=== PATIENT | female | born 1965 | race Caucasian/White ===

== ENCOUNTER 2021-01-22 18:43 | Emergency (ER) | payer OTHER ==
[~2021-01-22 18:43] MED LIST: COLACE100 MG PO; IBUPROFEN600 MG PO; KLONOPIN0.5 MG PO; NORCO 5-325 TA1 EACH PO; VITAMIN D5000 UNIT PO
== END 2021-01-22 20:42 | disposition home or self-care (01) ==
LOC: ER1 18:43
DX: S63.501A Unspecified sprain of right wrist, initial encounter (principal); S00.93XA Contusion of unspecified part of head, initial encounter; V49.9XXA Car occupant (driver) (passenger) injured in unspecified traffic accident, initial encounter
CPT/HCPCS: 29125; 72125; 72128; 73110; 73130; 99283